=== PATIENT | male | born 1960 | race Caucasian/White ===

== ENCOUNTER 2017-11-13 21:50 | Emergency (ER) | payer BC ==
--- NOTE | 2017-11-13 23:51 | RAD ---
CHEST TWO VIEW 11/13/17 HISTORY: Dyspnea. Cough. COMPARISON: None. FINDINGS: Lungs are hypoinflated with vascular crowding and spurious enlargement of the cardiac silhouette. Pro minent gastric bubble. No pneumothorax. IMPRESSION: Hypoinflation with scattered atelectasis. No acute intrathoracic abnormality. POS: H
--- NOTE | 2017-11-17 18:19 | EKG ---
Test Reason : SOB Blood Pressure : / mmHG Vent. Rate : 095 BPM Atrial Rate : 095 BPM P-R Int : 140 ms QRS Dur : 096 ms QT Int : 344 ms P-R-T Axes : 019 -08 027 degrees QTc Int : 432 ms Normal sinus rhythm Voltage criteria for left ventricular hypertrophy Abnormal ECG Confirmed by FORREST BESS [id number]), editor in chief GEMMA BATES ([id number]) on 11/17/2017 6:18:47 PM Referred By: Confirmed By:FORREST BESS
== END 2017-11-14 00:05 | disposition left against medical advice (07) ==
LOC: SCSER 21:50
DX: R09.02 Hypoxemia (principal); R05 Cough; E11.9 Type 2 diabetes mellitus without complications; E78.5 Hyperlipidemia, unspecified; I10 Essential (primary) hypertension; J45.909 Unspecified asthma, uncomplicated
CPT/HCPCS: 71046; 93005; 94640; 94760; J7620

== ENCOUNTER 2018-03-12 14:20 | Outpatient (CLI) | payer BC | END 2018-03-12 14:21 | disposition home or self-care (01) | LOC: BICRAD 14:20 | PROVIDERS: ATTEND Internal Medicine Gastroenterology | DX: K59.00 Constipation, unspecified (principal) | CPT/HCPCS: 74022 ==

== ENCOUNTER 2018-08-28 11:19 | Outpatient (CLI) | payer BC ==
[2018-08-28 11:56] LABS: #Basophils 0.1 thou/uL (0.0-0.2); #Eosinphils 0.2 thou/uL (0.0-0.7); #Lymphocytes 1.9 thou/uL (1.20-3.40); #Monocytes 0.8 thou/uL (0.11-0.59); #Neutrophils 7.7 thou/uL (1.40-6.50); %Basophils 1.1 % (0.0-1.0); %Eosinophils 2.3 % (0.0-10.0); %Lymphocytes 17.3 % (21.0-51.0); %Neutrophils 72.4 % (42.0-75.0); Hemoglobin 13.5 g/dL (14.0-18.0); Mean Corpuscular HGB CONC 33.9 g/dL (32.0-36.0); Mean Corpuscular Hemoglobin 31.6 pg (27.0-31.0); Mean Corpuscular Volume 93.3 fL (78.0-98.0); Mean Platelet Volume 7.3 fL (7.4-10.4); Platelet Count 216 thou/uL (130-400); RBC Distribution Width 12.1 % (11.5-14.5); Red Blood Cell (RBC) Count 4.28 mill/uL (4.70-6.10); White Blood Cell (WBC) Count 10.7 thou/uL (4.8-10.8)
[2018-08-28 12:15] LABS: Anion Gap 15 mmol/L (10-20); BUN (Urea Nitrogen) 20 mg/dL (8.4-25.7); Calc. Creatinine Clearance 0 mL/min (70-130); Calcium 10.8 mg/dL (7.8-10.44); Carbon Dioxide 24 mmol/L (22-29); Chloride 105 mmol/L (98-107); Estimated GFR-MDRD 60; Glucose 133 mg/dL (70-105); Potassium 4.1 mmol/L (3.5-5.1); Sodium 140 mmol/L (136-145)
--- NOTE | 2018-08-28 18:01 | EKG ---
Test Reason : Blood Pressure : / mmHG Vent. Rate : 076 BPM Atrial Rate : 076 BPM P-R Int : 150 ms QRS Dur : 080 ms QT Int : 362 ms P-R-T Axes : 013 012 030 degrees QTc Int : 407 ms Normal sinus rhythm Normal ECG When compared with ECG of 13-NOV-2017 22:02, No significant change was found Confirmed by OWEN LOO ([id number]) on 08/28/2018 6:01:13 PM Referred By: SONIA Confirmed By:OWEN LOO
== END 2018-08-28 11:20 | disposition home or self-care (01) ==
LOC: LABBT 11:19
PROVIDERS: ATTEND Specialist
DX: Z01.818 Encounter for other preprocedural examination (principal); K40.90 Unilateral inguinal hernia, without obstruction or gangrene, not specified as recurrent
CPT/HCPCS: 80048; 85025; 93005; 93010

== ENCOUNTER 2018-08-30 05:59 | Day surgery (SDC) | payer BC ==
--- NOTE | 2018-08-27 11:35 | HP ---
HISTORY OF PRESENT ILLNESS: Patient is a 57-year-old male with a left knee with a left inguinal kylee ia. He had a coughing episode developed some bruising in the left lower quadrant, developed pain rad iating to his testicle and groin. He was seen by Dr. Good referred Dr. Feliciano, exam apprecia griselda hernia, referred. Plan is for robotic left inguinal hernia repair with mesh and repair of right if found, although clinically and symptomatically he does not have a right inguinal hernia. He has a n appointment with Dr. Cuevas for cardiac catheterization next week. He has chest pain with press ure, exertional-related with mowing the grass. After cardiac clearance, plan was to schedule his her gladys, robotic left inguinal hernia repair with mesh. 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 ALLERGIES: ERYTHROMYCIN. TOBACCO: None. He does chew tobacco. Alcohol very rarely. PAST MEDICAL HISTORY: Diabetes mellitus, hypertension, undergoing cardiac evaluation with Dr. Pancho haas. PAST SURGICAL HISTORY: Tonsillectomy; two surgeries left knee in 1986 and 1998; with repair an d ligament repair, most recently by Dr. Leary; colonoscopy, upper endoscopy by Dr. Carmona in 2010; ureteral stent cystoscopies in 2011 for urolithiasis; extracorporeal shock wave lithotripsy by Dr. Donald min, 09/2011; ureteral stent removal by Dr. Larsen, 2011; colonoscopy, [address] Carmona; Dr. Mark min lithotripsy in 02/2014; colonoscopy and upper endoscopy, 08/[address] Carmona again in 2016. MEDICATIONS: Valsartan/hydrochlorothiazide 320/12.5 daily, amlodipine 10 mg a day, metoprolol daily, atorvastatin 80 mg a day, metformin 1000 mg twice daily, pioglitazone 45 mg a day, glipizide 5 mg a day, potassium chloride 20 mEq ER once a day, 81 mg of aspirin daily, multivitamins daily, eyedrops, proprionate nasal spray. ALLERGIES: LEVITRA 20 mg p.r.n. CONSULTANTS: 1. Primary care physician, Dr. Good. 2. Urologist, Dr. Feliciano. 3. ENT, Dr. Tre Patel. 4. Orthopedic, Dr. Leary. 5. Dr. Carmona, manager stone. 6. Environmental Field Technician, Dr. Cuevas. 7. Accounts Receivable Accountant Dr. Kuldip Ness. 8. Poultry Pinner, Dr. Kenroy Reyes. REVIEW OF SYSTEMS: Ten-point noncontributory except as noted above. PHYSICAL EXAMINATION: VITAL SIGNS: 272 pounds, 6 feet 2 inches, 135/71, 98.2 degrees. HEAD, EYES, EARS, NOSE, AND THROAT: Unremarkable. LUNGS: Clear to auscultation. CARDIAC: Regular rate and rhythm without murmur or gallop. ABDOMEN: Obese, soft, nontender. EXTREMITIES: Unremarkable. GENITOURINARY: Testicles normal bilaterally. Left inguinal hernia on standing, Valsalva. Right gildardo in without appreciable hernia. ASSESSMENT AND PLAN: 1. Left inguinal hernia. Plan repair robotically using mesh, outpatient after cardiac clearance. 2. Chest pain, to undergo cardiac catheterization with Dr. Cuevas, had a stress test on 27, that was normal. 3. EES allergy. 4. Diabetes mellitus. 5. Hypertension. 6. Obesity.
[2018-08-28 12:00] VITALS: BMI 33.5
[2018-08-30] MEDS ORDERED: Ketorolac Tromethamine 30 MG/ML VIAL ONE (06:27)
[2018-08-30] MEDS ORDERED: CEFAZOLIN 2 GM/50 ML BAG ONE (06:27)
[2018-08-30] MEDS ORDERED: Fentanyl 100 MCG/2 ML VIAL ONE ×2 (06:35→07:58)
[2018-08-30] MEDS ORDERED: Bupivacaine/Epinephrine 0.25% 30 ML VIAL ONE (06:51)
[2018-08-30] MEDS ORDERED: Scopolamine 1.5 mg/72 hour Patch ONE (07:34)
[2018-08-30] MEDS ORDERED: Lidocaine 1% PF 5 ML VIAL ONE (08:20)
[2018-08-30] MEDS ORDERED: PROPOFOL 200 MG/20 ML VIAL ONE (08:20)
[2018-08-30] MEDS ORDERED: Dexamethasone 20 MG/5 ML VIAL ONE (08:20)
[2018-08-30] MEDS ORDERED: PHENYLEPHRINE-NS 100 MCG/ML 10 ML SYRINGE ONE (08:20)
[2018-08-30] MEDS ORDERED: ePHEDrine/0.9% NaCl/PF SYRINGE 50 mg/10 ml ONE (08:20)
[2018-08-30] MEDS ORDERED: Ondansetron PF 4 MG/2 ML Vial ONE (08:20)
[2018-08-30] MEDS ORDERED: Rocuronium Bromide 50 MG/5 ML VIAL ONE (09:39)
[2018-08-30] MEDS ORDERED: SUGAMMADEX SODIUM 500 MG/5 ML VIAL ONE (09:59)
--- NOTE | 2018-08-30 17:03 | OP ---
DATE OF PROCEDURE: 08/30/2018 PREOPERATIVE DIAGNOSIS: Bilateral inguinal hernias. POSTOPERATIVE DIAGNOSIS: Bilateral indirect inguinal hernias. PROCEDURE: Robotic bilateral inguinal hernia repair using 3D Bard Max mesh, large, bilateral. ANESTHESIA: General with local 0.5% Marcaine with epinephrine 30 mL. Note, García catheter placed beginning of the procedure removed at the end, and bladder post filled with 250 mL. INDICATIONS: The patient had a severe coughing episode and experienced what I recorded is some ecchymosis about his right lateral lower abdominal wall and in my office, when I initially saw him, he complained of bruising around the right side and discomfort more in his left. Exam at that time revealed left inguinal hernia, questionable right. He was consented for robotic left inguinal hernia repair with mesh, possible right, depending on operative findings. When patient was seen initially in the office, he complained of some bruising in the left lower quadrant and Dr. Chris Milner, examined him and appreciated a left inguinal hernia. I examined him and concurred suspecting possible right inguinal hernia, although uncertain. He was consented for robotic left inguinal hernia repair, possible right if found. When I saw him in the preoperative holding, the patient reported that his bruising is abdominal wall was on the right and most of his symptoms on the right. When I examined him in preoperative holding, he was felt to have a probable right inguinal hernia and probable left. DESCRIPTION OF PROCEDURE: The patient was taken to the operating room where under general anesthesia, abdomen was clipped of hair, prepared with ChloraPrep and draped in routine fashion. A supraumbilical incision made. Pneumoperitoneum to 15 mmHg obtained with the Veress needle, replaced with 11 mm port. Bilateral lateral mid abdominal incision made, 8 mm ports placed under laparoscopic visualization. The robot was docked and robotic inguinal hernia evaluation and repair was undertaken. In the pelvic floor, there was noted to be large lipomas of the cord. The patient is morbidly obese. Peritoneal flaps taken down from the anterior superior iliac spine to the midline bilaterally, dissecting free the cord structures, identifying Bill's ligament. Cord structures and lateral dissection clear the peritoneal flap deep into the pelvis. Large lipomas of the cord bilaterally taken down on the left and right using careful dissection, skeletonizing the cord structures, identifying bilateral indirect inguinal hernias. A large 3D Bard Max mesh was obtained and on either side the mesh was applied to the pelvic floor, securing the mesh medially to Bill's ligament on the right and left and covering the cord structures at least 6 cm bilaterally and securing the mesh just lateral to the inferior epigastric vessels to the abdominal wall with 2-0 Vicryl suture. The mesh covered the defects well and covered the covered structures well, and good hemostasis was noted on either side as the peritoneal flap was closed with continuous suture of 2-0 V-Loc suture on each side. All needles were removed. All instrument counts were correct. Pneumoperitoneum reduced. All instruments were removed. Supraumbilical fascia was approximated with 0 Vicryl UR needle. All skin incisions were approximated with 4-0 Monocryl and [place] glue applied. The patient tolerated the procedure well. Job ID: [id number]
== END 2018-08-30 12:27 | disposition home or self-care (01) ==
LOC: SDC 05:59
PROVIDERS: ATTEND Specialist
PROC: 0YUA4JZ Supplement Bilateral Inguinal Region with Synthetic Substitute, Percutaneous Endoscopic Approach (ICD-10-PCS; principal; 2018-08-30)
DX: K40.20 Bilateral inguinal hernia, without obstruction or gangrene, not specified as recurrent (principal); D17.6 Benign lipomatous neoplasm of spermatic cord; E66.01 Morbid (severe) obesity due to excess calories; Z68.33 Body mass index [BMI] 33.0-33.9, adult; I10 Essential (primary) hypertension; E11.9 Type 2 diabetes mellitus without complications; Z88.1 Allergy status to other antibiotic agents; F17.290 Nicotine dependence, other tobacco product, uncomplicated; Z90.89 Acquired absence of other organs; Z79.84 Long term (current) use of oral hypoglycemic drugs; Z79.1 Long term (current) use of non-steroidal anti-inflammatories (NSAID); Z79.899 Other long term (current) drug therapy; Z98.890 Other specified postprocedural states
CPT/HCPCS: C1781; J0131; J1100; J1885; J2001; J2405; J2704; J3010